=== PATIENT | female | born 1990 | race Two or more races ===

== ENCOUNTER 2024-11-17 15:24 | Emergency (ER) | payer OTHER ==
[2024-11-17 19:01] LABS: BASO % 0.3 % (0.1-1.2); EOS # 0.01 (0.04-0.54); EOS % 0.1 % (0.7-7.0); LYMPH # 1.57 (1.18-3.74); LYMPH % 20.5 % (19.3-53.1); MEAN PLATELET VOLUME 10.50 fl (9.4-12.4); MONO # 0.30 (0.24-0.82); MONO % 3.9 % (4.7-12.5); NEUT # 5.75 (1.56-6.13); NEUT % 74.9 % (34.0-71.1); RED CELL DISTRIBUTION WIDTH 11.9 % (11.6-14.4)
[2024-11-17 19:15] LABS: ERYTHROCYTE SEDIMENTATION RATE 7 mm/hr (0-20)
[2024-11-17 19:42] LABS: ALT/SGPT 44 U/L (12-78); AST/SGOT 21 U/L (15-37); BILIRUBIN TOTAL 0.42 mg/dL (0.3-1.2); BUN CREA RATIO 16 (7.0-25.0); CREATININE SERUM 0.57 mg/dL (0.55-1.02); GFR 122.92; GLOBULINA 3.1 G/DL (2.4-3.5); GLUCOSE FASTING 87 mg/dL (65-100); OSMOLALITY SERUM 276 MOSM/KG (275-295)
[2024-11-17 22:12] LABS: URINE APPEARANCE Clear; URINE BACTERIA 232.7 uL (0.0-1933); URINE BILIRRUBIN Negative (NEGATIVE); URINE BLOOD Negative; URINE COLOR Yellow; URINE EPITHELIAL CELLS 3.2 uL (0.0-38.8); URINE GLUCOSE Negative (NEGATIVE); URINE KETONE Negative (NEGATIVE); URINE LEUKOCYTE Negative; URINE NITRATE Negative; URINE PROTEIN Negative (NEGATIVE); URINE UROBILINOGEN 0.2 E.U./dl; URINE WBC 3.8 uL (0.0-23.2)
[2024-11-17 22:13] LABS: URINE CAST 0.00 uL (0.0-1.40); URINE RBC 0.8 uL (0.0-20.8)
== END 2024-11-17 22:55 | disposition home or self-care (01) ==
LOC: ER 15:24
PROVIDERS: General Practice
DX: R53.1 Weakness (principal)